=== PATIENT | female | born 1960 | race Two or more races ===

== ENCOUNTER 2018-10-13 14:19 | Emergency (ER) | payer MEDICAID ==
[~2018-10-13] VITALS: Ht 152.4 cm; Wt 98.0 kg
[2018-10-13] MEDS ORDERED: SODIUM CHLORIDE 0.9% 500 ML IVB ONE (14:25)
[2018-10-13] MEDS ORDERED: FAMOTIDINE (10MG/ML) 2ML VL IV ONE (14:30)
[2018-10-13 15:38] LABS: Basophils # (auto) 0.1 uL; Basophils % (auto) 1.4 % (0.0-2.0); Eosinophils # (auto) 0.1 uL; Eosinophils % (auto) 1.6 % (0.0-7.0); Hematocrit 47.9 % (36.0-46.0); Hemoglobin 15.9 g/dL (12.2-16.2); Lymphocytes # (auto) 1.5 uL; Lymphocytes % (auto) 23.9 % (10.0-50.0); Mean Corpuscular Hemoglobin 29.7 pg (28.0-32.0); Mean Corpuscular Hgb Conc. 33.3 g/dL (32.0-36.0); Mean Corpuscular Volume 89.3 fL (80.0-100.0); Monocytes # (auto) 0.9 uL; Monocytes % (auto) 13.7 % (0.0-12.0); Neutrophils # (auto) 3.7 uL; Neutrophils % (auto) 59.4 % (37.0-80.0); Nucleated Red Blood Cells % 0.2 %; Platelet Count (auto) 267 10^3/uL (140-450); Red Blood Cells 5.37 10^6/uL (4.0-5.20); White Blood Cell 6.3 10^3/uL (4.4-10.8)
[2018-10-13 15:52] LABS: Albumin 3.8 g/dL (3.4-5.0); Blood Urea Nitrogen 28 mg/dL (7-18); Calcium 9.2 mg/dL (8.5-10.1); Carbon Dioxide 28 mmol/L (21-32); Glucose 137 mg/dL (74-106); Lipase 175 U/L (73-393); Magnesium 1.9 mg/dL (1.6-2.6)
[2018-10-13 15:56] LABS: Alanine Aminotransferase 33 U/L (13-56); Alkaline Phosphatase 123 U/L (45-117); Anion Gap 9 (5-15); Aspartate Aminotransferase 23 U/L (15-37); BUN/Creatinine Ratio 25.2; Bilirubin, Total 0.5 mg/dL (0.2-1.0); Chloride 101 mmol/L (98-107); GFR African American 64 mL/min; GFR Non-African American 53 mL/min; Sodium 138 mmol/L (136-145); Total Protein 8.2 g/dL (6.4-8.2)
[2018-10-13] MEDS ORDERED: POTASSIUM CHL 20MEQ/100ML 100 ML IV ONE (16:15)
[2018-10-13] MEDS ORDERED: cloNIDine HCL 0.1 MG TAB PO ONE ×2 (18:30→21:00)
[2018-10-13 21:41] VITALS: BP 123/67
== END 2018-10-13 22:19 | disposition short-term general hospital (02) ==
LOC: EDBD 14:19 → ER 14:32
DX: R07.9 Chest pain, unspecified (principal); K80.20 Calculus of gallbladder without cholecystitis without obstruction; E87.6 Hypokalemia; E78.5 Hyperlipidemia, unspecified; I10 Essential (primary) hypertension; E07.9 Disorder of thyroid, unspecified; J45.909 Unspecified asthma, uncomplicated; Z86.73 Personal history of transient ischemic attack (TIA), and cerebral infarction without residual deficits; Z98.51 Tubal ligation status
CPT/HCPCS: 36415; 76705; 80053; 83690; 83735; 84484; 85025; 93005; 94761; 96365; 96366; 96375; 99285; J3480; J3490; J7040